=== PATIENT | male | born 1995 | race Caucasian/White ===

== ENCOUNTER 2018-05-22 20:41 | Emergency (ER) | payer OTHER ==
[~2018-05-22] VITALS: Ht 180.3 cm; Wt 79.0 kg
[2018-05-22 22:58] VITALS: BP 119/59
== END 2018-05-22 22:58 | disposition home or self-care (01) | DRG 605 ==
LOC: ED 20:41
DX: S40.012A Contusion of left shoulder, initial encounter (principal); Y35.891A Legal intervention involving other specified means, law enforcement official injured, initial encounter; Y92.149 Unspecified place in prison as the place of occurrence of the external cause; Y99.0 Civilian activity done for income or pay

== ENCOUNTER 2019-02-26 | Emergency (ER) | payer OTHER ==
[2019-02-26] MEDS ORDERED: TAM75CAP PO (01:55)
== END 2019-02-26 02:00 | disposition home or self-care (01) | DRG 153 ==
DX: J11.1 Influenza due to unidentified influenza virus with other respiratory manifestations (principal)

== ENCOUNTER 2019-05-03 | Emergency (ER) | payer OTHER ==
[~2019-05-03] MED LIST: TAM75CAP PO
[2019-05-03] MEDS ORDERED: ROBITUSSIN AC10 ML PO (08:43)
[2019-05-03] MEDS ORDERED: AMOXICILLIN500 MG PO (08:43)
== END 2019-05-03 08:53 | disposition home or self-care (01) | DRG 153 ==
DX: J02.9 Acute pharyngitis, unspecified (principal)

== ENCOUNTER 2019-12-20 14:07 | Emergency (ER) | payer OTHER ==
[~2019-12-20] VITALS: Ht 180.3 cm; Wt 75.0 kg
[~2019-12-20 14:07] MED LIST changes: +AMOXICILLIN500 MG PO; +ROBITUSSIN AC10 ML PO
[2019-12-20 16:47] VITALS: BP 126/75
== END 2019-12-20 16:51 | disposition home or self-care (01) | DRG 125 ==
LOC: ED 14:07
PROC: 0HQ1XZZ Repair Face Skin, External Approach (ICD-10-PCS; principal; 2019-12-20)
PROC: 2W3AXYZ Immobilization of Right Upper Arm using Other Device (ICD-10-PCS; 2019-12-20)
DX: S01.111A Laceration without foreign body of right eyelid and periocular area, initial encounter (principal); S42.031A Displaced fracture of lateral end of right clavicle, initial encounter for closed fracture; Y04.2XXA Assault by strike against or bumped into by another person, initial encounter; Y93.89 Activity, other specified; Y92.149 Unspecified place in prison as the place of occurrence of the external cause; Y99.0 Civilian activity done for income or pay

== ENCOUNTER 2022-04-11 10:29 | Emergency (ER) | payer OTHER ==
[2022-04-11] VITALS (7 sets, daily range): BP systolic 111–123; BP diastolic 71–82
[~2022-04-11] VITALS: Ht 180.3 cm; Wt 93.0 kg
[2022-04-11] MEDS ORDERED: NAPROXEN500 MG PO (14:14)
== END 2022-04-11 14:42 | disposition home or self-care (01) | DRG 563 ==
LOC: ED 10:29
DX: S83.91XA Sprain of unspecified site of right knee, initial encounter (principal); W17.89XA Other fall from one level to another, initial encounter

== ENCOUNTER 2023-03-08 20:42 | Emergency (ER) | payer OTHER ==
[2023-03-08] VITALS (7 sets, daily range): BP systolic 120–142; BP diastolic 73–91
[~2023-03-08] VITALS: Ht 180.3 cm; Wt 86.0 kg
[~2023-03-08 20:42] MED LIST changes: +NAPROXEN500 MG PO
[2023-03-08 21:08] LABS: BASO% 0.3 % (0-3); EOS% 1.6 % (0-8); HEMATOCRIT 45.3 % (39.0-50.0); HEMOGLOBIN 15.4 g/dl (14.0-18.0); IMMATURE GRANULOCYTES 0.3 % (0.0-5.0); LYMPH% 34.9 % (15-41); MEAN CELL VOLUME 83.6 fL CALC (80.0-100.0); MEAN CORPUSCULAR HGB 28.4 pG CALC (26.0-32.0); MONO% 9.7 % (2-13); NEUT# 5.12 thou/uL (1.82-7.42); NEUT% 53.2 % (42-76); RED BLOOD COUNT 5.42 mill/uL (4.70-6.10); RED CELL DISTRI WIDTH 11.9 % (11.5-15.5); URINE BILIRUBIN - DIPSTICK Negative (NEGATIVE); URINE BLOOD DIPSTICK Moderate (NEGATIVE); URINE GLUCOSE - DIPSTICK Negative (NEGATIVE); URINE KETONE Negative (NEGATIVE); URINE LEUK ESTERASE Negative (NEGATIVE); URINE NITRITE - DIPSTICK Negative (Negative); URINE PH 5.5 (4.5-8.0); URINE PROTEIN - DIPSTICK Negative (NEG-TRACE); URINE SPECIFIC GRAVITY 1.025; URINE UROBILINOGEN - DIPSTICK 0.2 E.U./dL (0.2)
[2023-03-08 21:10] LABS: URINE COLOR Yellow
[2023-03-08 21:17] LABS: ALBUMIN 5.2 g/dL (3.2-5.0); ALKALINE PHOSPHATASE 72 u/l (38-126); ANION GAP 16 (6-22 (CALC)); BILIRUBIN, TOTAL 0.8 mg/dL (0.2-1.3); BUN 18 mg/dL (9-20); BUN/CREATININE RATIO 15 (12-20 (CALC)); CARBON DIOXIDE 24 mmol/l (22-30); CHLORIDE 106 mmol/l (95-108); CREATININE 1.2 mg/dL (0.7-1.3); GFR FOR AFR.AMER. > 60 ML/MIN (>=60 (CALC)); GFR OTHER RACES > 60 ML/MIN (>=60 (CALC)); POTASSIUM 4.2 mmol/l (3.5-5.1); SGOT/AST 25 u/l (17-59); SODIUM 142 mmol/l (137-146); TOTAL PROTEIN 8.3 g/dL (6.3-8.2)
[2023-03-08 21:18] LABS: URINE MUCUS RARE hpf (NONE-FEW)
[2023-03-08] MEDS ORDERED: TAMSULOSIN0.4 MG PO (22:47)
[2023-03-08] MEDS ORDERED: LORTAB 5/3255 MG PO (22:47)
== END 2023-03-08 23:36 | disposition home or self-care (01) | DRG 694 ==
LOC: ED 20:42
PROVIDERS: Family Medicine
DX: N13.2 Hydronephrosis with renal and ureteral calculous obstruction (principal)